=== PATIENT | male | born 1980 | race Caucasian/White ===

== ENCOUNTER → 2017-12-30 | Outpatient (CLI) | payer BC, OTHER ==
[~2017-12-30] MED LIST: LISI5TAB7 PO; MYCO250C PO; MYCO500T PO; PRED5TAB PO; TACR1CAP4 PO
[2017-12-30 16:44] LABS: ALANINE AMINOTRANSFERASE 25 U/L (12-78); ALBUMIN 3.9 g/dL (3.4-5.0); ANION GAP 6 mmol/L (5-15); CALCIUM 8.7 mg/dL (8.5-10.1); CHLORIDE 107 mmol/L (98-107); CREATININE 1.21 mg/dL (0.7-1.3)
[2017-12-30 16:46] LABS: ALKALINE PHOSPHATASE 56 U/L (45-117); BILIRUBIN,TOTAL 0.5 mg/dL (0.2-1.0); TOTAL PROTEIN 7.1 g/dL (6.4-8.2)
== END | disposition home or self-care (01) ==
LOC: STAR 15:49
PROVIDERS: ATTEND Surgery
DX: Z01.818 Encounter for other preprocedural examination (principal); K82.8 Other specified diseases of gallbladder
CPT/HCPCS: 36415; 80053

== ENCOUNTER 2018-01-05 07:06 | Day surgery (SDC) | payer BC ==
[~2018-01-05] VITALS: Ht 172.7 cm; Wt 81.1 kg
[2018-01-05] MEDS ORDERED: LACTATED RINGERS 1,000 ML IV SCH (07:20)
[2018-01-05] MEDS ORDERED: FENTANYL PF 250 MCG/5ML ONE (08:36)
[2018-01-05] MEDS ORDERED: EPINEPHRINE 1 MG/ML, 1ML ONE ×2 (08:37→08:43)
[2018-01-05] MEDS ORDERED: BUPIVACAINE/PF 0.5% ONE ×2 (08:37→08:42)
[2018-01-05] MEDS ORDERED: KETOROLAC 30 MG/1 ML ONE (08:58)
[2018-01-05] MEDS ORDERED: ACETAMINOPHEN 500 MG TABLET PO ONE (09:00)
[2018-01-05] MEDS ORDERED: ONDANSETRON 2MG/ML, 2ML IV PRN (09:00)
[2018-01-05] MEDS ORDERED: OXYcodone 5 MG/5 ML ORAL.SOL UDC PO PRN ×2 (09:00→10:00)
[2018-01-05] MEDS ORDERED: EPHEDRINE 50 MG/ML, 1ML IVPush PRN (09:00)
[2018-01-05] MEDS ORDERED: FENTANYL PF 100 MCG/2ML IV PRN (09:00)
[2018-01-05] MEDS ORDERED: LABETALOL 5MG/ML, 20ML IV PRN (09:00)
[2018-01-05] MEDS ORDERED: HYDROmorphone 1 MG/ML, 1ML IV PRN (09:00)
[2018-01-05] MEDS ORDERED: GABAPENTIN 300 MG CAPSULE PO ONE (09:00)
[2018-01-05] MEDS ORDERED: CEFAZOLIN 1,000 MG ONE (09:26)
[2018-01-05] MEDS ORDERED: ONDANSETRON 2MG/ML, 2ML ONE (09:26)
[2018-01-05] MEDS ORDERED: DEXAMETHASONE 4 MG/ML, 1ML ONE (09:26)
[2018-01-05] MEDS ORDERED: GLYCOPYRROLATE 0.2MG/1ML, 5ML ONE (09:26)
[2018-01-05] MEDS ORDERED: PROPOFOL 10 MG/ML, 20ML ONE (09:26)
[2018-01-05] MEDS ORDERED: ROCURONIUM 10MG/ML,5ML ONE (09:26)
[2018-01-05] MEDS ORDERED: NEOSTIGMINE 1 MG/ML, 10ML ONE (09:26)
[2018-01-05] MEDS ORDERED: SUCCINYLCHOLINE 20 MG/ML, 10ML ONE (09:26)
[2018-01-05] MEDS ORDERED: MEPERIDINE/PF 50 MG/ML ONE (09:42)
[2018-01-05] MEDS ORDERED: OXYcodone 5 MG/5 ML ORAL.SOL UDC ONE (09:49)
[2018-01-05] MEDS ORDERED: ONDANSETRON 2MG/ML, 2ML IVPush PRN (10:00)
[2018-01-05] MEDS ORDERED: MEPERIDINE/PF 25MG/0.5ML IVPush PRN (10:00)
== END 2018-01-05 13:10 | disposition home or self-care (01) ==
LOC: OUT 07:06
PROVIDERS: ATTEND Surgery
DX: K81.1 Chronic cholecystitis (principal); I10 Essential (primary) hypertension; Z94.0 Kidney transplant status
CPT/HCPCS: 47562; 88304; J0171; J0330; J0690; J1100; J1885; J2175; J2405; J2704; J2710; J3010; J3490; J7120